=== PATIENT | female | born 1945 | race Caucasian/White ===

== ENCOUNTER 2016-12-07 08:06 | Emergency (ER) | payer MEDICARE, OTHER ==
[~2016-12-07] VITALS: Ht 157.5 cm; Wt 62.0 kg
[~2016-12-07 08:06] MED LIST: AMLO5TAB4 PO; CIPR500T4 PO; DULO60CA59 PO; GABA100C14 PO; GLIP-95 PO; IBUP-1542 PO; LEVO88TA3 PO; MAXZ25 PO; METF1000 PO; METR500T PO; OMEP20CA16 PO; SITA100T8 PO
[2016-12-07 08:17] VITALS: Ht 157.5 cm; Wt 62.0 kg
[2016-12-07] MEDS ORDERED: IPRATROPIUM (NEB) 0.5 MG/2.5 ML AMP NEB STA (08:41)
[2016-12-07] MEDS ORDERED: ALBUTEROL 0.083% (NEB) 2.5 MG/3 ML AMP NEB STA (08:41)
--- NOTE | 2016-12-07 09:33 | RADRPT ---
PROCEDURE: Chest x-ray CLINICAL INDICATION: Cough TECHNIQUE: Chest single view COMPARISON: 05/12/2016 FINDINGS: There is stable mild cardiomegaly and an sclerotic aortic calcification. The pulmonary vessels are n ormal in caliber. The lungs are clear. The costophrenic angles are sharp. The visualized bony tho rax is unremarkable. There are old right-sided rib fractures. IMPRESSION: No acute cardiopulmonary disease. Stable mild cardiomegaly and atherosclerotic aortic calcification RPTAT: HH .James Gomez MD, MD Date Time Electronically viewed and signed by .James Gomez MD, on 12/07/2016 09:32 .W/
[2016-12-07] MEDS ORDERED: AZIT250T94 PO (09:40)
--- NOTE | 2016-12-07 09:45 | ERD ---
ER Documentation Chief Complaint Date/Time DATE: 12/07/16 TIME: 09:42 Chief Complaint flu x 4 days, runny nose, body aches HPI Patient is a 71-year-old female who presents complaining of cough, congestion, and runny nose with body aches over the past 4 days. Denies fever. She has been drinking teas at home to help but it does not help. Denies any nausea or vomiting or diarrhea. Denies any chest pain or shortness of breath. Denies any weight loss or night sweats. Denies any diaphoresis. ROS All systems reviewed and are negative except as per history of present illness. Medications Home Meds Active Scripts Azithromycin* (Zithromax*) 250 Mg Tablet, 250 MG PO .CassandraPACK DIRECTED, #6 TAB TAKE 500 MG (2 TABS) THE FIRST DAY THEN 250 MG (1 TAB) DAYS 2-5 Prov:ALBERTO CHAPMAN PA-C 12/07/16 Metronidazole* (Flagyl*) 500 Mg Tablet, 500 MG PO TID for 10 Days, TAB Prov:MARIAA TERRAZAS MD 05/12/16 Ciprofloxacin Hcl* (Ciprofloxacin Hcl*) 500 Mg Tablet, 500 MG PO BID, #20 TAB Prov:MARIAA TERRAZAS MD 05/12/16 Ibuprofen* (Motrin*) 600 Mg Tab, 600 MG PO Q6H Y for PAIN AND OR ELEVATED TEMP, #30 TAB Prov:MARIAA TERRAZAS MD 04/12/16 Reported Medications Metformin Hcl* (Metformin Hcl*) 1,000 Mg Tablet, 1000 MG PO WITH BREAKFAST, #30 TAB 05/12/16 Duloxetine Hcl* (Duloxetine Hcl*) 60 Mg Capsule.dr, 60 MG PO DAILY, #30 CAP 05/12/16 Levothyroxine Sodium* (Levothyroxine Sodium*) 88 Mcg Tablet, 88 MCG PO BEFORE BREAKFAST, #30 TAB 05/12/16 Omeprazole* (Omeprazole*) 20 Mg Capsule.dr, 20 MG PO AC BREAKFAST, #30 CAP 04/12/16 Gabapentin* (Gabapentin*) 100 Mg Capsule, 100 MG PO BID, #90 CAP 04/12/16 Amlodipine Besylate* (Norvasc*) 5 Mg Tablet, 5 MG PO BID, TAB 04/12/16 Glipizide* (Glipizide*) 10 Mg Tablet, 10 MG PO BID, TAB 04/12/16 Triamterene/Hctz* (Maxzide (37.5-25)*) 1 Each Tablet, 1 EACH PO DAILY, #30 TAB 04/12/16 Sitagliptin* (Januvia*) 100 Mg Tablet, 100 MG PO DAILY, #30 TAB 04/12/16 Allergies Allergies: Coded Allergies: No Known Allergy (Unverified , 05/12/16) PMhx/Soc History of Surgery: Yes (hysterectomy) Anesthesia Reaction: No Hx Neurological Disorder: No Hx Respiratory Disorders: No Hx Cardiac Disorders: Yes (HTN, CHOLESTEROL) Hx Psychiatric Problems: No Hx Miscellaneous Medical Probl: Yes (DM, FIBROMYALGIA, THYROID, broken ribs R) Hx Alcohol Use: No Hx Substance Use: No Hx Tobacco Use: No FmHx Family History: diabetes Physical Exam Vitals Vital Signs Date Time Temp Pulse Resp B/P Pulse Ox O2 Delivery O2 Flow Rate FiO2 12/07/16 08:53 55 18 100 21 12/07/16 08:17 98.1 58 18 160/77 99 Physical Exam General: well developed, well nourished, alert, nontoxic, no distress Head: normocephalic, atraumatic Neck: Supple, nontender, no lymphadenopathy, no midline tenderness Oropharynx: no tonsilar erythema or edema, uvula midline, no exudates, no kissing tonsils, no drooling Respiratory: Clear to auscaultation bilaterally, speaks in full sentences, no use of accesory muscles or labored breathing, no rales, ronchi, or wheezing Cardiovascular: RRR, No murmurs GI: soft, non tender, non distended, negative murphys sign, negative mcburneys point tenderness, no cva tenderness bilaterally, no rebound or guarding Back: no midline tenderness, no step offs or bony abnormalities, sensation to light touch in tact Results 24 hrs Current Medications Medications (Trade) Dose Ordered Sig/Evan Route PRN Reason Start Time Stop Time Status Last Admin Dose Admin Albuterol (Proventil 0.083% (Neb)) 2.5 mg ONCE STAT NEB 12/07/16 08:41 12/07/16 08:43 DC 12/07/16 08:51 Ipratropium [place] (Atrovent 0.02% (Neb)) 0.5 mg ONCE STAT NEB 12/07/16 08:41 12/07/16 08:43 DC 12/07/16 08:51 Procedures/MDM Patient presents with bronchitis which is most likely viral. Her chest x-ray showed no evidence of pneumonia. She was given a breathing treatment with some relief of her symptoms. Discharged her with azithromycin. Recommended this patient follow up with her primary care doctor within 48 hours or return to the emergency room for any worsening of symptoms. However this time I do believe there is suitable for outpatient management. I answered all their questions and they agreed with the plan and were discharged home. Departure Diagnosis: Primary Impression: Bronchitis Condition: Stable Patient Instructions: Bronchitis, Antiobiotic Treatment (Adult) Additional Instructions: Llame al doctor MAANA y hernandez mikie TERRENCE PARA DENTRO DE 1-2 VALDES.Dgale a la secretaria que nosotros le instruimos hacer esta terrence.Avise o llame si darnell condicin se empeora antes de la terrence. Regresa aqui si peor o no mejor. ALBERTO CHAPMAN PA-C Dec 07, 2016 09:45
== END 2016-12-07 10:00 | disposition home or self-care (01) ==
LOC: FTE 08:06
DX: J20.9 Acute bronchitis, unspecified (principal); I10 Essential (primary) hypertension; E11.9 Type 2 diabetes mellitus without complications; Z79.84 Long term (current) use of oral hypoglycemic drugs
CPT/HCPCS: 71010; 94664

== ENCOUNTER 2017-01-01 10:44 | Day surgery (SDC) | payer MEDICARE, OTHER ==
[2017-01-01] VITALS (16 sets, daily range): BP systolic 128–171; BP diastolic 59–77; PULSE 51–65; RESP 13–22; Ht 160 cm; Wt 55.0 kg
[~2017-01-01] VITALS: Ht 160 cm; Wt 55.0 kg
[~2017-01-01 10:44] MED LIST changes: +AZIT250T94 PO; +CEFAZOLIN 1 GM INJ ONE
[2017-01-01] MEDS ORDERED: ASPI-664 PO (11:35)
[2017-01-01] MEDS ORDERED: ATOR10TA65 PO (11:36)
[2017-01-01] MEDS ORDERED: HYD25 PO (11:37)
[2017-01-01] MEDS ORDERED: GABA300C16 PO (11:38)
[2017-01-01] MEDS ORDERED: CELE200C PO (11:39)
[2017-01-01 12:00] LABS: ADD SCAN DIFF NO
[2017-01-01 12:11] LABS: BASOPHILS % 0.4 % (0.0-2.0); EOSINOPHILS % 0.6 % (0.0-7.0); HEMOGLOBIN 13.2 g/dl (12.0-16.0); LYMPHOCYTES # 2.2 10^3/ul (0.8-2.9); LYMPHOCYTES % 30.2 % (15.0-51.0); MEAN CORPUSCULAR HEMOGLOBIN 31.1 pg (29.0-33.0); MEAN CORPUSCULAR HGB CONC 34.7 g/dl (32.0-37.0); MEAN CORPUSCULAR VOLUME 89.6 fl (82.0-101.0); MEAN PLATELET VOLUME 10.3 fl (7.4-10.4); MONOCYTE # 0.6 10^3/ul (0.3-0.9); MONOCYTES % 7.9 % (0.0-11.0); NEUTROPHIL # 4.4 10^3/ul (1.6-7.5); NEUTROPHILS % 60.6 % (39.0-77.0); PLATELET COUNT 212 10^3/UL (140-415); RED BLOOD COUNT 4.24 10^6/ul (4.20-5.40); WHITE BLOOD COUNT 7.2 10^3/ul (4.8-10.8)
[2017-01-01 12:24] LABS: INR 0.9; PROTIME 12.1 Sec (12.2-14.2); PT RATIO 0.9
[2017-01-01 12:25] LABS: PARTIAL THROMBOPLASTIN TIME 27.5 Sec (25.0-35.0)
[2017-01-01] MEDS ORDERED: SOD CHLORIDE 0.9% 1,000 ML IV SCH (12:30)
[2017-01-01 12:34] LABS: CALCIUM 9.7 mg/dl (8.4-10.2); CREATININE 0.59 mg/dl (0.44-1.00); POTASSIUM 4.3 mmol/L (3.5-5.1)
[2017-01-01] MEDS ORDERED: DEXAMETHASONE 4 MG/ML 1 ML INJ ONE (12:49)
[2017-01-01] MEDS ORDERED: ONDANSETRON 4 MG INJ ONE (12:49)
[2017-01-01] MEDS ORDERED: ACETAMINOPHEN 1000MG/100ML IV 100 ML ONE (12:49)
[2017-01-01] MEDS ORDERED: FENTAnyl 50 MCG/ML VIAL ONE (12:49)
[2017-01-01] MEDS ORDERED: PROPOFOL 20 ML ONE (12:49)
--- NOTE | 2017-01-01 12:58 | HPN ---
Date/Time of Note Date/Time of Note DATE: 01/01/17 TIME: 12:57 Interval H&P Admission Note Pt. seen H&P reviewed: No system changes ABHIJEET BECKFORD Jan 01, 2017 12:58
[2017-01-01] MEDS ORDERED: TRIAMCINOLONE ACET 40 MG/ML INJ ONE (13:26)
[2017-01-01] MEDS ORDERED: BUPIVACAINE 0.5% (SDV) 30 ML INJ ONE (13:26)
[2017-01-01] MEDS ORDERED: LABETALOL HCL 20MG INJ IV PRN (13:30)
[2017-01-01] MEDS ORDERED: FENTAnyl 50 MCG/ML VIAL IV PRN ×2 (13:30)
[2017-01-01] MEDS ORDERED: ONDANSETRON 4 MG INJ IV PRN (13:30)
[2017-01-01] MEDS ORDERED: hydrALAzine 20 MG INJ IV PRN (13:30)
[2017-01-01] MEDS ORDERED: morphine (1 MG/ML) 10ML SYRINGE IV PRN (13:30)
[2017-01-01] MEDS ORDERED: MEPERIDINE 25 MG INJ IV PRN (13:30)
[2017-01-01] MEDS ORDERED: POLYMYXIN/BACITRACIN 1L IRRIG ONE (13:35)
[2017-01-01] MEDS ORDERED: hydrALAzine 20 MG INJ ONE (13:38)
[2017-01-01] MEDS ORDERED: FAMOTIDINE 20 MG INJ ONE (13:40)
[2017-01-01] MEDS ORDERED: KETOROLAC 30 MG INJ ONE (14:07)
[2017-01-01] MEDS ORDERED: HYDROCODONE/APAP (5/325) TAB PO ONE (16:30)
--- NOTE | 2017-01-04 13:35 | PREOPHP ---
DATE OF ADMISSION: 01/01/2017 ADMITTING DIAGNOSIS: Painful bunion, right foot for elective bunionectomy by Dr. Guy Hills. HISTORY OF PRESENT ILLNESS: The patient is a 71-year-old female with diabetes, hypertension, hyperlipidemia, hypothyroidism with worsening right foot pain due to bunion. The patient was evalu ated by the delivery engineer who felt that the patient's pain, lack of response to conservative treatment and ongoing symptoms was indicative of surgical need. REVIEW OF SYSTEMS: Otherwise, unremarkable. No chest pain, no shortness of breath, no palpitations . No fevers, chills or night sweats. No nausea, vomiting, or diarrhea. No dysuria, no hematuria, no pyuria. No headaches, no dizziness. No rashes. PAST MEDICAL HISTORY: Type 2 diabetes, hyperlipidemia, nonalcoholic fatty liver disease, hypothyroi dism, hypertension, diabetic neuropathy. PAST SURGICAL HISTORY: Unremarkable. FAMILY HISTORY: Noncontributory as patient does not know her family history.. SOCIAL HISTORY: No tobacco, no alcohol use. MEDICATIONS: 1. Atorvastatin 10 mg daily. 2. Glipizide 10 mg daily. 3. Gabapentin 100 mg t.i.d. 4. Losartan 100 mg daily. 5. Aspirin 81 mg daily, but on hold. 6. Januvia 100 mg daily. 7. Amlodipine 5 mg daily. 8. Levothyroxine 88 mcg daily. 9. Metformin 1000 mg b.i.d. 10. Omeprazole 40 mg daily. PHYSICAL EXAMINATION: VITAL SIGNS: Temperature 97.8, respirations 12, pulse of 61, pulse oximetry 96% on room air, blood pressure 150/60, weight 129 pounds. GENERAL: Well-developed, well-nourished female in no acute distress. HEENT: EOMI, PERRLA. Oropharynx clear without exudate. NECK: No jugular venous distention, 2+ carotid upstroke without bruits. No lymphadenopathy, no thy romegaly. LUNGS: Clear to auscultation bilaterally. HEART: Regular rate and rhythm. No murmurs, gallops or rubs noted. Normal S1, S2. ABDOMEN: Soft, nontender, nondistended, normoactive bowel sounds. No hepatojugular reflux. GENITOURINARY: Deferred. EXTREMITIES: No cyanosis, clubbing or edema. Right foot with tender bunion, hallux valgus with mar ked deviation. NEUROLOGIC: Decreased pinprick, fine touch, vibration bilateral lower extremities in a stocking dis tribution. LABORATORY DATA: White blood cell count 5.3, hemoglobin of 15.5, hematocrit 45.5, platelets 234. N onfasting glucose of 225, BUN 14, creatinine 0.74, sodium 134, potassium 4.7, chloride 92, bicarbona te 25. Albumin 4.5, alkaline phosphatase 69, AST 43, ALT 31. INR 1.0, PT 10.4, PTT 27. Chest x-ray shows no active cardiopulmonary disease. EKG shows sinus bradycardia with left bundle b ranch block, no acute ischemic changes and no change from her prior EKG. ASSESSMENT AND PLAN: 1. The patient with right foot hallux valgus in for elective bunionectomy. The patient may proceed with the surgery as scheduled. The patient is an ASA class 2 anesthesia risk secondary to controll ed comorbid illnesses. The patient was instructed to discontinue her aspirin 1 week prior to surger y. The patient was also instructed to hold her diabetic medications the morning of her surgery. Th e patient was also instructed to take her blood pressure medications with a sip of water only in the morning of her surgery. 2. Hypertension. This is stable. Continue with routine medications, and the patient to take the m edication in a.m. with a sip of water only. 3. Diabetes, this is controlled. The patient instructed to hold diabetic medications a.m. of surge ry. 4. Hyperlipidemia, stable. Continue with patient's medications and diet. 5. Hypothyroidism. Continue with patient's medications. 6. Fatty liver, this is stable. Continue with diet, weight loss and controlled diabetes. Dictated By: STEPHEN MCCANN MD SR/NTS Conf#: [id number] DID#: [id number]
--- NOTE | 2017-01-05 15:40 | OPR ---
DATE OF OPERATION: 01/01/2017 SURGEON: Guy Hills DPM. POSTOPERATIVE DIAGNOSIS: Painful bunion, right foot. POSTOPERATIVE DIAGNOSIS: Painful bunion, right foot. OPERATION PERFORMED: Marino implant first metatarsophalangeal joint, right foot. OPERATIVE PROCEDURE: The patient was brought into the operating room and placed on the OR table in as secure supine position. A pneumatic ankle tourniquet was place about the right ankle. After general anesthesia was performed, the foot was prepped and draped in usual sterile manner. The pneumatic ankle tourniquet was inflated to 250 mmHg after it was exsanguinated using the Esmarch bandage. Attention was directed to the first MTP joint where a dorsal linear incision was made parallel to the EHL tendon. The incision was deepened using sharp and blunt dissection. All bleeders were cauterized. Once the capsule of the first MTPJ was visualized and a linear capsulotomy was performed. A lot of viscous fluid came out of the joint at this point. The first metatarsal head was noted to be arthritic and the medial eminence was noted to be very prominent. A sagittal saw was used to resect part of the medial eminence as well as cutting the cartilage off the distal aspect of the first metatarsal head, as well as the proximal aspect of the base of the proximal phalanx. All sharp edges were rasped smooth. After copious lavage, a broach was used to penetrate the first metatarsal head as well as the base of the proximal phalanx. A sizer of the Marino toe implant was used, and visualized to have adequate range of motion. After copious lavage again, a Marino flex toe hinge implant was inserted into the first MTPJ joint. At this point the range of motion of the hallux was noted to be adequate. The capsule was reapproximated using #3-0 Vicryl, the subcutaneous structures were reapproximated using #4-0 Vicryl and the skin was reapproximated using #4-0 nylon. 5 mL of .5 percent Marcaine mixed with 1 mL of Kenalog was used for postoperative control. Steri-Strips, gauze, Kerlix and coban was used for dressing. The ankle tourniquet was deflated and immediate hyperemia was noted to digits 1-5 of the right foot. The patient will be followed up in the office on . Dictated By: Guy Hills DPM /kika/lindsay /Document#: [id number]
== END 2017-01-01 16:55 | disposition home or self-care (01) ==
LOC: SDS 10:44
PROVIDERS: ATTEND Podiatrist
DX: M21.611 Bunion of right foot (principal); I10 Essential (primary) hypertension; E03.9 Hypothyroidism, unspecified; E11.21 Type 2 diabetes mellitus with diabetic nephropathy; F32.9 Major depressive disorder, single episode, unspecified
CPT/HCPCS: 28750; 80048; 82962; 85025; 85610; 85730; J0131; J0690; J1100; J1885; J2405; J3010; L3260; J0360

== ENCOUNTER 2017-08-11 10:15 | Emergency (ER) | END 2017-08-11 11:17 | disposition home or self-care (01) ==

== ENCOUNTER 2018-04-30 18:18 | Emergency (ER) | END 2018-05-01 02:01 | disposition home or self-care (01) ==